=== PATIENT | male | born 1995 | race African-American/Black ===

== ENCOUNTER 2025-03-11 08:34 | Outpatient (RCR) | payer OTHER, SELFPAY ==
[2025-03-11] VITALS (8 sets, daily range): BP systolic 108–115; BP diastolic 65–74; PULSE 53–97; RESP 14–16; TEMP 36.2–37; O2SAT 97–99
[2025-03-11] MEDS: 0.9 % SODIUM CHLORIDE 500 ML 250 ML IV (14:34)
== END 2025-09-07 23:59 | disposition home or self-care (01) ==
LOC: CCIC 08:34
PROVIDERS: Referring Provider Internal Medicine Hematology & Oncology; Visit Provider Clinical Nurse Specialist
DX: D75.1 Secondary polycythemia (principal)
CPT/HCPCS: 36415; 36430; 86850; 86900; 86901; 86922; J7030; P9016